=== PATIENT | female | born 1970 | race Caucasian/White ===

== ENCOUNTER 2016-11-30 23:33 | Emergency (ER) | payer SELFPAY ==
[~2016-11-30] VITALS: Ht 167.6 cm; Wt 62.0 kg
[2016-11-30 23:34] VITALS: BP 155/85; PULSE 85; RESP 16; TEMP 98.6; O2SAT 99
[2016-12-01 00:43] VITALS: BP 135/91; PULSE 80; RESP 16; O2SAT 99
[2016-12-01] MEDS ORDERED: KEPP750T PO (00:43)
[2016-12-01] MEDS ORDERED: ONDANSETRON HCL 4 MG/2 ML VIAL IV ONE (01:45)
[2016-12-01] MEDS ORDERED: SODIUM CHLOR 0.9% 1000 ML INJ 1,000 ML IV ONE (01:45)
[2016-12-01 01:46] VITALS: O2SAT 98
--- NOTE | 2016-12-01 01:56 | PD ---
HPI Chief Complaint: Abdominal Pain Time Seen by Provider: 00:42 Travel History International Travel<30 days: No Contact w/Intl Traveler<30days: No Traveled to known affect area: No History of Present Illness HPI The patient is a 46 year old female who presents to the [facility] emergency department with a history of abdominal pain associated with nausea, vomiting, and diarrhea that began yesterday. The patient reports that the pain is sharp in character and has been constant. She reports that the pain is generalized throughout her abdomen. She reports that she's had nausea and vomiting 4 today. She's had diarrhea 6. She reports that the stool is dark brown in color. She reports that she also has a history of seizure disorder and had 3 seizures reportedly earlier today. She reports that she has been taking her Keppra as prescribed. The patient reports that she has tongue pain related to biting her tongue. The patient denies any known recent fevers, cough , congestion, neck pain, chest pain, shortness of breath, urinary symptoms, or other neurologic symptoms. [facility] Past Medical History Narrative Medical The patient's past medical history is significant for a seizure disorder. Seizures: Yes ("I SHAKE" ) Influenza Vaccination: Yes ?: Not LMP: 1 week ago. Past Surgical History Narrative Surgical The patient's past surgical history is significant for 2 ectopic surgeries. Surgical History: No Previous Surgery Social History Alcohol Use: No Tobacco Use: Yes (08/24 ppd) Substance Use: No (pt denies ) Allergies-Medications (Allergen,Severity, Reaction): Coded Allergies: Nonsteroidal Anti-Inflammatory Agts (Verified Allergy, Severe, Anaphylaxis , 12/01/16) Sulfa (Verified Allergy, Intermediate, Rash, 12/01/16) Reported Meds & Prescriptions Reported Meds & Active Scripts Active Reported Keppra (Levetiracetam) 750 Mg Tab 750 Mg PO BID Review of Systems Except as stated in HPI: all other systems reviewed are Neg General / Constitutional: No: Fever Eyes: No: Visual changes HENT: Positive: Other (tongue contusion) Cardiovascular: No: Chest Pain or Discomfort Respiratory: No: Shortness of Breath Gastrointestinal: Positive: Nausea, Vomiting, Diarrhea, Abdominal Pain, Changes in Bowel Habits, No: Hematemesis, Hematochezia, Indigestion, Loss of Appetite Genitourinary: No: Dysuria Musculoskeletal: No: Pain Skin: No Rash Neurologic: Positive: Seizures, No: Weakness, Focal Abnormalities, Change in Mentation, Slurred Speech, Sensory Disturbance Psychiatric: No: Depression Endocrine: No: Polydipsia Hematologic/Lymphatic: No: Easy Bruising Physical Exam Narrative General: The patient is a well-developed well-nourished female in no acute distress. Head and Neck exam: Head is normocephalic atraumatic. Eyes: EOMI, pupils are equal round and reactive to light. Nose: Midline septum with pink mucous membranes Mouth: The patient on examination of her mouth is noted to have a tongue contusion, abrasion along the right side of the tongue, abrasion along the left side of the lower lip inner mucosa. Dentition unremarkable. Moist mucus membranes. Posterior oropharynx is not erythematous. No tonsillar hypertrophy. Uvula midline. Airway patent. Neck: No palpable lymphadenopathy. No nuchal rigidity. No thyromegaly. Cardiovascular: Regular rate and rhythm without murmurs, gallops, or rubs. Lungs: Clear to auscultation bilaterally. No wheezes, rhonchi, or rales. Abdomen: Soft, with reported tenderness on palpation in the midepigastric area, no other focal tenderness on palpation. No guarding, rebound, or rigidity. Normal bowel sounds are audible. No tenderness on palpation of McBurney's point Extremities: No clubbing, cyanosis, or edema. 2+ pulses in all 4 extremities. No calf tenderness on palpation. Back: No spinous process tenderness to palpation. No costovertebral angle tenderness to palpation. Neurologic Exam: Grossly nonfocal. Skin Exam: No rash noted. Intact skin that is warm and dry. Data Data Last Documented VS Vital Signs Date Time Temp Pulse Resp B/P Pulse Ox O2 Delivery O2 Flow Rate FiO2 12/01/16 01:46 98 Room Air 12/01/16 00:43 80 16 135/91 11/30/16 23:34 98.6 Orders Electrocardiogram (12/01/16 01:42) Complete Blood Count With Diff (12/01/16 01:42) Comprehensive Metabolic Panel (12/01/16 01:42) Prothrombin Time / Inr (Pt) (12/01/16 01:42) Act Partial Throm Time (Ptt) (12/01/16 01:42) C-Reactive Protein (Crp) (12/01/16 01:42) Lipase (12/01/16 01:42) Urinalysis - C+S If Indicated (12/01/16 01:42) Beta Hcg (Quant/Titer) (12/01/16 01:42) Magnesium (Mg) (12/01/16 01:42) Chest, Single Ap (12/01/16 01:42) Ct Brain W/O Iv Contrast(Rout) (12/01/16 01:42) Ct Abd/Pel W Iv Contrast(Rout) (12/01/16 01:42) Iv Access Insert/Monitor (12/01/16 01:42) Ecg Monitoring (12/01/16 01:42) Oximetry (12/01/16 01:42) Drug Screen, Random Urine (12/01/16 01:42) Alcohol (Ethanol) (12/01/16 01:42) Sodium Chlor 0.9% 1000 Ml Inj (Ns 1000 M (12/01/16 01:45) Ondansetron Inj (Zofran Inj) (12/01/16 01:45) Acetaminophen (Tylenol) (12/01/16 02:00) Iohexol 350 Inj (Omnipaque 350 Inj) (12/01/16 03:14) Morphine Inj (Morphine Inj) (12/01/16 03:30) Ondansetron Inj (Zofran Inj) (12/01/16 03:30) Labs Laboratory Tests Test 12/01/16 12/01/16 01:51 02:20 White Blood Count 16.4 TH/MM3 Red Blood Count 4.10 MIL/MM3 Hemoglobin 11.8 GM/DL Hematocrit 35.9 % Mean Corpuscular Volume 87.5 FL Mean Corpuscular Hemoglobin 28.7 PG Mean Corpuscular Hemoglobin 32.9 % Concent Red Cell Distribution Width 16.1 % Platelet Count 355 TH/MM3 Mean Platelet Volume 8.5 FL Neutrophils (%) (Auto) 81.8 % Lymphocytes (%) (Auto) 11.7 % Monocytes (%) (Auto) 6.2 % Eosinophils (%) (Auto) 0.0 % Basophils (%) (Auto) 0.3 % Neutrophils # (Auto) 13.4 TH/MM3 Lymphocytes # (Auto) 1.9 TH/MM3 Monocytes # (Auto) 1.0 TH/MM3 Eosinophils # (Auto) 0.0 TH/MM3 Basophils # (Auto) 0.1 TH/MM3 CBC Comment DIFF FINAL Differential Comment Prothrombin Time 10.9 SEC Prothromb Time International 1.0 RATIO Ratio Activated Partial 27.0 SEC Thromboplast Time Sodium Level 141 MEQ/L Potassium Level 3.7 MEQ/L Chloride Level 109 MEQ/L Carbon Dioxide Level 23.1 MEQ/L Anion Gap 9 MEQ/L Blood Urea Nitrogen 5 MG/DL Creatinine 0.73 MG/DL Estimat Glomerular Filtration 85 ML/MIN Rate Random Glucose 92 MG/DL Calcium Level 8.5 MG/DL Magnesium Level 2.0 MG/DL Total Bilirubin 0.3 MG/DL Aspartate Amino Transf 13 U/L (AST/SGOT) Alanine Aminotransferase 14 U/L (ALT/SGPT) Alkaline Phosphatase 69 U/L C-Reactive Protein 0.33 MG/DL Total Protein 7.4 GM/DL Albumin 3.7 GM/DL Lipase 65 U/L Human Chorionic Gonadotropin, LESS THAN 1 Quant MIU/ML Ethyl Alcohol Level LESS THAN 3 MG/DL Urine Color LIGHT-YELLOW Urine Turbidity HAZY Urine pH 6.0 Urine Specific [place] 1.020 Urine Protein TRACE mg/dL Urine Glucose (UA) NEG mg/dL Urine Ketones NEG mg/dL Urine Occult Blood NEG Urine Nitrite NEG Urine Bilirubin NEG Urine Urobilinogen LESS THAN 2.0 MG/DL Urine Leukocyte Esterase NEG Urine RBC 1 /hpf Urine WBC 2 /hpf Urine Squamous Epithelial 7 /hpf Cells Urine Mucus FEW /lpf Microscopic Urinalysis Comment CULT NOT INDICATED Urine Opiates Screen NEG Urine Barbiturates Screen NEG Urine Amphetamines Screen NEG Urine Benzodiazepines Screen POS Urine Cocaine Screen NEG Urine Cannabinoids Screen POS [facility] Medical Decision Making Medical Screen Exam Complete: Yes Emergency Medical Condition: Yes Medical Record Reviewed: Yes Differential Diagnosis Electrolyte abnormality, versus dehydration, versus viral versus bacterial gastroenteritis, versus C. difficile colitis, versus pyelonephritis, versus cystitis, versus diverticulitis Narrative Course During the course of the patients emergency department visit, the patients history, examination, and differential diagnosis were reviewed with the patient. The patient had IV access obtained and blood work sent for analysis. The patient was placed on a registered nurse cardiac with oximetry and blood pressure monitoring. An EKG was done on arrival. The patient's EKG shows a sinus rhythm heart rate of 81, no acute ST segment elevation or depression, T waves are inverted in V1, V2. The patient was provided initially Tylenol for pain, normal saline IV fluids, Zofran 4 mg IV for nausea. The patient had persistent pain and was given morphine, additional Zofran [address] scan of the abdomen and pelvis was ordered. The patients laboratory studies were reviewed and remarkable for a white count of 16.4, hemoglobin 11.8, platelets 355 with 81.8 neutrophil, CMP is remarkable for chloride of 109, BUNs 5, GFR of 85, AST 13, C-reactive protein 0.33, lipase 65, beta hCG is less than 1, PT PTT within normal limits, urinalysis is unremarkable. Urine drug screen is positive for benzodiazepines, cannabinoids, alcohol level is less than 3. Radiology studies were reviewed and remarkable for a chest x-ray that shows a right mid lung nodule that is [address] scan of the chest as recommended by the reading radiologist for follow-up. CT scan of the brain shows no acute abnormality. Left maxillary sinus disease is noted. CT scan of the abdomen and pelvis shows fluid filled large bowel loops without obstruction, bilateral subcentimeter related renal low densities likely benign cyst. The patient will be discharged home from the emergency department in stable condition. The patient has had no further episodes of vomiting or diarrhea. The patient's abdominal examination is benign. Regarding the patient's lung nodule the patient is given a copy of her chest x-ray. The patient was also given an outpatient lab slip for an outpatient scan of the chest. The patient is instructed to follow-up with her primary care physician regarding this this week. The patient will be discharged home with a prescription for antibiotic for maxillary sinus infection and Phenergan for nausea. The patient is resting comfortably and feels better, is alert and in no distress. The patients results and examination findings were discussed with the patient. The repeat examination is unremarkable and benign. The history, exam, diagnostic testing, and current condition do not suggest any significant pathology to warrant further testing, continued ED treatment, admission, or surgical evaluation at this point. The vital signs have been stable. The patient does not have uncontrollable pain, intractable vomiting, or other significant symptoms. The patient's condition is stable and appropriate for discharge. The patient will pursue further outpatient evaluation with a primary care physician or other designated or consulting physician as indicated in the discharge instructions. The patient expressed understanding and was agreeable with this plan. Diagnosis Primary Impression: Nausea, vomiting, and diarrhea Additional Impressions: Left maxillary sinusitis Lung nodule seen on imaging study Referrals: Primary Care Physician 2 days Patient Instructions: Acute Diarrhea (ED), Acute Nausea and Vomiting (ED), General Instructions, Pulmonary Nodules (ED), Sinusitis (ED) Additional Instructions: Follow-up with her primary care physician regarding the lung nodule noted on chest x-ray. The patient was given an outpatient testing slip to obtain a CT scan of the chest to further evaluate the pulmonary nodule noted on chest x-ray that is in the right mid lung field and 12 mm. Med/Other Pt SpecificInfo: Prescription(s) given Scripts Promethazine (Phenergan)25 Mg Tab25 Mg PO Q6H PRN (Nausea/Vomiting) #7 TAB Ref 0 Prov:Caryl Smiley MD 12/01/16 Azithromycin (Zithromax Z-Filippo)250 Mg Ghbm660 Mg PO DIRECTED #1 DSPK Ref 0 500 MG (2 tabs) day 1, then 1 tab days 2-5. Prov:Caryl Smiley MD 12/01/16 Disposition: 01 DISCHARGE HOME Condition: Stable Caryl Smiley MD Dec 01, 2016 01:56
[2016-12-01] MEDS ORDERED: ACETAMINOPHEN 325 MG TAB PO ONE (02:00)
[2016-12-01 02:10] LABS: AUTOMATED NEUTROPHIL # 13.4 TH/MM3 (1.8-7.7); BASOPHIL # 0.1 TH/MM3 (0-0.2); BASOPHIL % 0.3 % (0.0-2.0); HEMATOCRIT 35.9 % (35.0-46.0); HEMO FLAGS DIFF FINAL; LYMPH % 11.7 % (9.0-44.0); LYMPHOCYTE # 1.9 TH/MM3 (1.0-4.8); MEAN CELL VOLUME 87.5 FL (80.0-100.0); MEAN CORPUSCULAR HEMOGLOBIN 28.7 PG (27.0-34.0); MEAN CORPUSCULAR HGB CONC 32.9 % (32.0-36.0); MONO % 6.2 % (0.0-8.0); NEUT % 81.8 % (16.0-70.0); PLATELET COUNT 355 TH/MM3 (150-450); PROTHROMBIN TIME - PATIENT 10.9 SEC (9.8-11.6); RED CELL DISTRIBUTION WIDTH 16.1 % (11.6-17.2); WHITE BLOOD COUNT 16.4 TH/MM3 (4.0-11.0)
[2016-12-01 02:27] LABS: ALT (GPT) 14 U/L (10-53); ANION GAP 9 MEQ/L (5-15); AST (GOT) 13 U/L (15-37); BICARBONATE 23.1 MEQ/L (21.0-32.0); BLOOD UREA NITROGEN 5 MG/DL (7-18); CHLORIDE 109 MEQ/L (98-107); GLOMERULAR FILTRATION RATE 85 ML/MIN (>89); POTASSIUM 3.7 MEQ/L (3.5-5.1); SODIUM (NA) 141 MEQ/L (136-145)
[2016-12-01 02:30] LABS: ALKALINE PHOSPHATASE 69 U/L (45-117); BETA HCG QUANT LESS THAN 1 MIU/ML (0-5); TOTAL BILIRUBIN ADULT 0.3 MG/DL (0.2-1.0)
[2016-12-01 02:33] LABS: BLOOD, URINE NEG (NEG); COMMENT (UR) CULT NOT INDICATED; CULTURE IF INDICATED CULT NOT INDICATED; GLUCOSE,URINE NEG (NEG); KETONE, URINE NEG (NEG); MUCUS URINE FEW /lpf (OCC); NITRITE,URINE NEG (NEG); SQUAMOUS EPITHELIAL CELL URINE 7 /hpf (0-5); URINE COLOR LIGHT-YELLOW (YELLW/STRAW)
[2016-12-01 02:40] LABS: AMPHETAMINE, URINE NEG (NEG); BARBITURATES, URINE NEG (NEG); COCAINE, URINE NEG (NEG)
--- NOTE | 2016-12-01 03:08 | RADRPT ---
EXAM DATE/TIME: 12/01/2016 01:39 [facility] COMPARISON: No previous studies available for comparison. INDICATIONS : Shortness of breath. MEDICAL HISTORY : None. SURGICAL HISTORY : None. ENCOUNTER: Initial ACUITY: 1 day PAIN SCORE: Non-responsive. LOCATION: Bilateral chest FINDINGS: A single view of the chest demonstrates the lungs to be symmetrically aerated without evidence of mas s, infiltrate or effusion. There is a nodule in the right midlung measuring 12 mm. The cardiomediast inal contours are unremarkable. Osseous structures are intact. CONCLUSION: Right midlung nodule. CT chest recommended. Sameer Handley MD on December 01, 2016 at 3:06 Board Certified Radiologist. This report was verified electronically.
[2016-12-01] MEDS ORDERED: IOHEXOL 350 MG/ML 10 ML VIAL (for RAD DIAG) IV ONE (03:14)
[2016-12-01] MEDS ORDERED: ONDANSETRON HCL 4 MG/2 ML VIAL IV PUSH ONE (03:30)
[2016-12-01] MEDS ORDERED: MORPHINE SULFATE 4 MG/ML INJ IV PUSH ONE (03:30)
--- NOTE | 2016-12-01 04:11 | RADRPT ---
EXAM DATE/TIME: 12/01/2016 03:07 [facility] COMPARISON: No previous studies available for comparison. INDICATIONS : Seizure with fall. RADIATION DOSE: 54.61 CTDIvol (mGy) MEDICAL HISTORY : Seizures. SURGICAL HISTORY : None. ENCOUNTER: Initial ACUITY: 1 day PAIN SCALE: 10/10 LOCATION: Bilateral cranial TECHNIQUE: Multiple contiguous axial images were obtained of the head. Using automated exposure control and adj ustment of the mA and/or kV according to patient size, radiation dose was kept as low as reasonably a chievable to obtain optimal diagnostic quality images. FINDINGS: CEREBRUM: The ventricles are normal for age. No evidence of midline shift, mass lesion, hemorrhage or acute in farction. No extra-axial fluid collections are seen. POSTERIOR FOSSA: The cerebellum and brainstem are intact. The 4th ventricle is midline. The cerebellopontine angle i s unremarkable. EXTRACRANIAL: The visualized portion of the orbits is intact. Partial opacification left maxillary sinus. SKULL: The calvaria is intact. No evidence of skull fracture. CONCLUSION: No acute intracranial disease. Left maxillary sinus disease Sameer Handley MD on December 01, 2016 at 4:09 Board Certified Radiologist. This report was verified electronically.
--- NOTE | 2016-12-01 04:21 | RADRPT ---
EXAM DATE/TIME: 12/01/2016 03:11 [facility] COMPARISON: No previous studies available for comparison. INDICATIONS : Abdomen pain with diarrhea. IV CONTRAST: 72 cc Omnipaque 350 (iohexol) IV ORAL CONTRAST: No oral contrast ingested. RADIATION DOSE: 4.61 CTDIvol (mGy) MEDICAL HISTORY : Seizures. SURGICAL HISTORY : None. ENCOUNTER: Initial ACUITY: 1 day PAIN SCALE: 10/10 LOCATION: abdomen TECHNIQUE: Volumetric scanning of the abdomen and pelvis was performed. Using automated exposure control and ad justment of the mA and/or kV according to patient size, radiation dose was kept as low as reasonably achievable to obtain optimal diagnostic quality images. FINDINGS: LOWER LUNGS: The visualized lower lungs are clear. LIVER: Homogeneous density without lesion. There is no dilation of the biliary tree. No calcified gallston es. SPLEEN: Normal size without lesion. PANCREAS: Within normal limits. KIDNEYS: Normal in size and shape. There is no mass, stone or hydronephrosis. Subcentimeter bilateral renal l ow-density is. ADRENAL GLANDS: Within normal limits. VASCULAR: Mild atherosclerotic changes. There is no aortic aneurysm. BOWEL/MESENTERY: Fluid-filled large bowel loops are seen. No obstruction.. There is no free intraperitoneal air or fl uid. ABDOMINAL WALL: Within normal limits. RETROPERITONEUM: There is no lymphadenopathy. BLADDER: No wall thickening or mass. REPRODUCTIVE: Within normal limits. INGUINAL: There is no lymphadenopathy or hernia. MUSCULOSKELETAL: Within normal limits for patient age. CONCLUSION: 1. Fluid-filled large bowel loops without obstruction. 2. Bilateral subcentimeter related renal low densities likely benign cysts. Sameer Handley MD on December 01, 2016 at 4:10 Board Certified Radiologist. This report was verified electronically.
[2016-12-01] MEDS ORDERED: PROM25TA5 PO (05:01)
[2016-12-01] MEDS ORDERED: ZITHTAB PO (05:01)
--- NOTE | 2016-12-01 11:35 | EKG ---
Date Performed: 12/01/2016 Time Performed: 01:55:58 PTAGE: 46 years EKG: Sinus rhythm NORMAL ECG NO PREVIOUS TRACING DOCTOR: Jason Grayson Interpretating Date/Time 12/01/2016 11:33:00
== END 2016-12-01 06:10 | disposition home or self-care (01) ==
LOC: NEPC 23:33
DX: R11.2 Nausea with vomiting, unspecified (principal); R19.7 Diarrhea, unspecified; R91.1 Solitary pulmonary nodule; F17.210 Nicotine dependence, cigarettes, uncomplicated; J01.00 Acute maxillary sinusitis, unspecified
CPT/HCPCS: 70450; 71010; 74177; 80053; 81001; 83690; 83735; 84702; 85025; 85610; 85730; 86140; 93005; 96361; 96374; 96375; 96376; 99284; J2270; J2405; J7030; Q9967; 80307

== ENCOUNTER 2016-12-01 15:59 | Emergency (ER) | payer SELFPAY ==
[~2016-12-01] VITALS: Ht 167.6 cm; Wt 63.5 kg
[~2016-12-01 15:59] MED LIST: KEPP750T PO; PROM25TA5 PO; ZITHTAB PO
[2016-12-01 16:02] VITALS: BP 150/87; PULSE 78; RESP 24; TEMP 98.6; O2SAT 100
--- NOTE | 2016-12-01 16:05 | PD ---
Physical Exam Time Seen by Provider: 16:02 Narrative 46 year old female with seizure this morning, withnessed by reports h/ a. +incontinence, tongue biting. takes keppra, compliant with medications. Reports 3 seizures yesterday. Seen her yesterday for eval of n/v/d/abd pain. VSS Seen at triage desk, awaiting bed placement. Data Data Last Documented VS Vital Signs Date Time Temp Pulse Resp B/P Pulse Ox O2 Delivery O2 Flow Rate FiO2 12/01/16 16:02 98.6 78 24 150/87 100 Room Air [facility] Medical Record Reviewed: Yes Supervised Visit with MERCEDES: Yes Nitesh Dumont Dec 01, 2016 16:05
--- NOTE | 2016-12-01 17:09 | PD ---
HPI Chief Complaint: Seizure Time Seen by Provider: 16:57 Travel History International Travel<30 days: No Contact w/Intl Traveler<30days: No Traveled to known affect area: No History of Present Illness HPI 46-year-old female with history of seizure disorder on [place], from [place], in town because her is building a building here, here for evaluation of headache and seizure. Patient was here yesterday for abdominal pain, nausea, vomiting. She also reportedly had 3 seizures yesterday and was complaining of a headache yesterday. Labs reviewed from yesterday were unremarkable. She is not . CT abdomen pelvis showed some fluid-filled loops of bowel with no signs of obstruction. Chest x-ray showed a lung nodule which the patient was made aware of any made her again aware of this today with recommendation for CT chest as an outpatient. Head CT showed left maxillary sinus disease. The patient was discharged home with antiemetics and azithromycin which she has not filled. She again reportedly had a seizure this morning. She is complaining of tongue pain where she bit her tongue, oral right cheek pain which she bit her cheek, and a frontal headache. Headache is constant, severe. She reports having a fever of 101F yesterday, no fevers today. No neck pain or stiffness. She denies alcohol abuse. No drug use. PFSH Past Medical History Seizures: Yes ?: Not LMP: 11/2016 Social History Alcohol Use: No Tobacco Use: Yes Substance Use: No Allergies-Medications (Allergen,Severity, Reaction): Coded Allergies: Nonsteroidal Anti-Inflammatory Agts (Verified Allergy, Severe, Anaphylaxis , 12/01/16) Sulfa (Verified Allergy, Intermediate, Rash, 12/01/16) Reported Meds & Prescriptions Reported Meds & Active Scripts Active Phenergan (Promethazine HCl) 25 Mg Tab 25 Mg PO Q6H PRN Zithromax Z-Filippo (Azithromycin) 250 Mg Dspk 250 Mg PO DIRECTED 500 MG (2 tabs) day 1, then 1 tab days 2-5. Reported Keppra (Levetiracetam) 750 Mg Tab 750 Mg PO BID Review of Systems Except as stated in HPI: all other systems reviewed are Neg Physical Exam Narrative GENERAL: Well-developed, well-nourished, awake, alert, no acute distress. SKIN: Focused skin assessment warm/dry. HEAD: Atraumatic. Normocephalic. EYES: Pupils equal, round, 3 mm, reactive to light. No scleral icterus. No injection or drainage. ENT: No nasal bleeding or discharge. Mucous membranes pink and moist. Poor dentition. Abrasion to right lateral tongue and right buccal mucosa. NECK: Trachea midline. No JVD. No midline cervical spine step-off or tenderness. No nuchal rigidity. CARDIOVASCULAR: Regular rate and rhythm. RESPIRATORY: No accessory muscle use. Clear to auscultation. Breath sounds equal bilaterally. GASTROINTESTINAL: Abdomen soft, non-tender, nondistended. MUSCULOSKELETAL: No obvious deformities. No clubbing. No cyanosis. No edema. NEUROLOGICAL: Awake and alert. No obvious cranial nerve deficits. Motor grossly within normal limits. Normal speech. PSYCHIATRIC: Appropriate mood and affect; insight and judgment normal. Data Data Last Documented VS Vital Signs Date Time Temp Pulse Resp B/P Pulse Ox O2 Delivery O2 Flow Rate FiO2 12/01/16 18:26 57 16 115/68 100 Room Air 12/01/16 16:02 98.6 Orders Complete Blood Count With Diff (12/01/16 17:04) Alcohol (Ethanol) (12/01/16 17:04) Ecg Monitoring (12/01/16 17:04) Iv Access Insert/Monitor (12/01/16 17:04) Oximetry (12/01/16 17:04) Comprehensive Metabolic Panel (12/01/16 17:04) Sodium Chloride 0.9% Flush (Ns Flush) (12/01/16 17:15) Ua Includes Microscopic (12/01/16 17:04) Magnesium (Mg) (12/01/16 17:04) Morphine Inj (Morphine Inj) (12/01/16 17:15) Metoclopramide Inj (Reglan Inj) (12/01/16 17:15) Sodium Chlor 0.9% 1000 Ml Inj (Ns 1000 M (12/01/16 17:15) Morphine Inj (Morphine Inj) (12/01/16 18:45) Labs Laboratory Tests Test 12/01/16 17:24 White Blood Count 12.1 TH/MM3 Red Blood Count 3.86 MIL/MM3 Hemoglobin 11.0 GM/DL Hematocrit 33.9 % Mean Corpuscular Volume 87.9 FL Mean Corpuscular Hemoglobin 28.5 PG Mean Corpuscular Hemoglobin 32.4 % Concent Red Cell Distribution Width 16.7 % Platelet Count 321 TH/MM3 Mean Platelet Volume 8.4 FL Neutrophils (%) (Auto) 71.3 % Lymphocytes (%) (Auto) 20.0 % Monocytes (%) (Auto) 7.9 % Eosinophils (%) (Auto) 0.3 % Basophils (%) (Auto) 0.5 % Neutrophils # (Auto) 8.6 TH/MM3 Lymphocytes # (Auto) 2.4 TH/MM3 Monocytes # (Auto) 1.0 TH/MM3 Eosinophils # (Auto) 0.0 TH/MM3 Basophils # (Auto) 0.1 TH/MM3 CBC Comment DIFF FINAL Differential Comment Urine Color LIGHT-YELLOW Urine Turbidity HAZY Urine pH 6.0 Urine Specific [place] 1.018 Urine Protein NEG mg/dL Urine Glucose (UA) NEG mg/dL Urine Ketones NEG mg/dL Urine Occult Blood MOD Urine Nitrite NEG Urine Bilirubin NEG Urine Urobilinogen LESS THAN 2.0 MG/DL Urine Leukocyte Esterase NEG Urine RBC LESS THAN 1 /hpf Urine WBC 1 /hpf Urine Squamous Epithelial 6 /hpf Cells Sodium Level 139 MEQ/L Potassium Level 4.2 MEQ/L Chloride Level 108 MEQ/L Carbon Dioxide Level 22.9 MEQ/L Anion Gap 8 MEQ/L Blood Urea Nitrogen 4 MG/DL Creatinine 0.76 MG/DL Estimat Glomerular Filtration 82 ML/MIN Rate Random Glucose 90 MG/DL Calcium Level 8.0 MG/DL Magnesium Level 1.9 MG/DL Total Bilirubin 0.3 MG/DL Aspartate Amino Transf 36 U/L (AST/SGOT) Alanine Aminotransferase 16 U/L (ALT/SGPT) Alkaline Phosphatase 58 U/L Total Protein 6.5 GM/DL Albumin 3.1 GM/DL Ethyl Alcohol Level LESS THAN 3 MG/DL [facility] Medical Decision Making Medical Screen Exam Complete: Yes Emergency Medical Condition: Yes Differential Diagnosis Breakthrough seizure, medication noncompliance, metabolic abnormality, meningitis/encephalitis unlikely, Narrative Course Initial vital signs show heart rate 70, blood pressure 150/87, pulse ox 100% on room air, oral temp of 98.6F. CBC shows WBC 12.1, hemoglobin 11, hematocrit 33.9, platelets 321, neutrophils 71.3%. CMP is unremarkable. Alcohol level is negative. UA is not suggestive of UTI. The patient was given pain medication and Reglan and reports improvement in headache. She has no nuchal rigidity on exam. She is overall well-appearing. Headache started yesterday. She did have a CT of her head yesterday which showed no acute intracranial abnormality, left maxillary sinusitis. I told the patient that the next step to investigate her headache would be an LP to rule out meningitis/SAH. And a clear do not believe she has either the symptoms. She does not wish to undergo LP. Again she is overall well-appearing and is feeling much better. She is stable for discharge home with outpatient follow- up with her primary care physician this week. She was informed on when to return to the emergency department. She verbalizes understanding and agreement with plan. Diagnosis Primary Impression: Seizure Additional Impression: Headache Qualified Code: R51 - Nonintractable headache, unspecified chronicity pattern , unspecified headache type Referrals: Primary Care Physician 3 days Additional Instructions: Follow-up with your primary care physician this week. Return to the emergency department for worsening symptoms or any other concerns. Disposition: 01 DISCHARGE HOME Condition: Stable Isaiah Schreiber MD Dec 01, 2016 17:09
[2016-12-01] MEDS ORDERED: METOCLOPRAMIDE HCL 10 MG/2 ML VIAL IV PUSH ONE (17:15)
[2016-12-01] MEDS ORDERED: SODIUM CHLORIDE 0.9% FLUSH 10 ML FLUSH IVF PRN (17:15)
[2016-12-01] MEDS ORDERED: MORPHINE SULFATE 4 MG/ML INJ IV PUSH ONE ×2 (17:15→18:45)
[2016-12-01] MEDS ORDERED: SODIUM CHLOR 0.9% 1000 ML INJ 1,000 ML IV ONE (17:15)
[2016-12-01 17:27] VITALS: O2SAT 99
[2016-12-01 17:52] LABS: AUTOMATED NEUTROPHIL # 8.6 TH/MM3 (1.8-7.7); BASOPHIL # 0.1 TH/MM3 (0-0.2); BASOPHIL % 0.5 % (0.0-2.0); EOSINOPHIL % 0.3 % (0.0-4.0); HEMATOCRIT 33.9 % (35.0-46.0); HEMO FLAGS DIFF FINAL; LYMPHOCYTE # 2.4 TH/MM3 (1.0-4.8); MEAN CELL VOLUME 87.9 FL (80.0-100.0); MEAN CORPUSCULAR HEMOGLOBIN 28.5 PG (27.0-34.0); MEAN CORPUSCULAR HGB CONC 32.4 % (32.0-36.0); MONO % 7.9 % (0.0-8.0); NEUT % 71.3 % (16.0-70.0); PLATELET COUNT 321 TH/MM3 (150-450); RED BLOOD COUNT 3.86 MIL/MM3 (4.00-5.30); RED CELL DISTRIBUTION WIDTH 16.7 % (11.6-17.2); WHITE BLOOD COUNT 12.1 TH/MM3 (4.0-11.0)
[2016-12-01 17:54] LABS: BLOOD, URINE MOD (NEG); GLUCOSE,URINE NEG (NEG); KETONE, URINE NEG (NEG); NITRITE,URINE NEG (NEG); SQUAMOUS EPITHELIAL CELL URINE 6 /hpf (0-5); URINE COLOR LIGHT-YELLOW (YELLW/STRAW)
[2016-12-01 18:23] LABS: ALKALINE PHOSPHATASE 58 U/L (45-117); ALT (GPT) 16 U/L (10-53); ANION GAP 8 MEQ/L (5-15); AST (GOT) 36 U/L (15-37); BICARBONATE 22.9 MEQ/L (21.0-32.0); BLOOD UREA NITROGEN 4 MG/DL (7-18); CHLORIDE 108 MEQ/L (98-107); GLOMERULAR FILTRATION RATE 82 ML/MIN (>89); MAGNESIUM 1.9 MG/DL (1.5-2.5); POTASSIUM 4.2 MEQ/L (3.5-5.1); SODIUM (NA) 139 MEQ/L (136-145); TOTAL BILIRUBIN ADULT 0.3 MG/DL (0.2-1.0)
[2016-12-01 18:26] VITALS: BP 115/68; PULSE 57; RESP 16; O2SAT 100
== END 2016-12-01 19:34 | disposition home or self-care (01) ==
LOC: NEPD 15:59
DX: R56.9 Unspecified convulsions (principal); R51 Headache; J32.0 Chronic maxillary sinusitis; K14.6 Glossodynia; Z72.0 Tobacco use
CPT/HCPCS: 80053; 80307; 81001; 83735; 85025; 96374; 96375; 96376; 99284; J2270; J2765; J7030

== ENCOUNTER 2016-12-08 16:47 | Emergency (ER) | payer OTHER ==
[~2016-12-08] VITALS: Ht 167.6 cm; Wt 63.0 kg
[2016-12-08 16:48] VITALS: BP 140/95; PULSE 100; RESP 20; TEMP 98.6; O2SAT 100
[2016-12-08] MEDS ORDERED: PROCHLORPERAZINE MALEATE 10 MG TAB PO ONE (17:45)
[2016-12-08] MEDS ORDERED: diphenhydrAMINE HCL 50 MG CAP PO ONE (17:45)
--- NOTE | 2016-12-08 18:18 | PD ---
HPI Chief Complaint: Seizure Time Seen by Provider: 17:28 Travel History International Travel<30 days: No Contact w/Intl Traveler<30days: No Traveled to known affect area: No History of Present Illness HPI Patient is a 46-year-old female presents emergency department with headache bimaxillary states fairly intense ever since she had a seizure a few days ago. Patient states she was here had a CAT scan of her head and told that she had sinusitis is been taking her antibiotics as prescribed. She states she's also been taking her Keppra as prescribed. She's not yet followed up with her seizure center. Denies any further seizures. [facility] Past Medical History Seizures: Yes ?: Unknown Social History Alcohol Use: No Tobacco Use: Yes Substance Use: No Allergies-Medications (Allergen,Severity, Reaction): Coded Allergies: Nonsteroidal Anti-Inflammatory Agts (Verified Allergy, Severe, Anaphylaxis , 12/08/16) Sulfa (Verified Allergy, Intermediate, Rash, 12/08/16) Reported Meds & Prescriptions Reported Meds & Active Scripts Active Phenergan (Promethazine HCl) 25 Mg Tab 25 Mg PO Q6H PRN Reported Keppra (Levetiracetam) 750 Mg Tab 750 Mg PO BID Review of Systems Except as stated in HPI: all other systems reviewed are Neg Physical Exam Narrative GENERAL: Well-developed well-nourished, appears older than stated age in no apparent distress. SKIN: Focused skin assessment warm/dry. HEAD: Atraumatic. Normocephalic. No raccoons eyes no corcoran signs. Bilateral maxillary or minimally tender to percussion. EYES: Pupils equal and round. No scleral icterus. No injection or drainage. ENT: No nasal bleeding or discharge. Mucous membranes pink and moist. TMs clear bilaterally, oropharynx pink and clear. Patient missing multiple left maxillary teeth. NECK: Trachea midline. No JVD. CARDIOVASCULAR: Regular rate and rhythm. No murmur appreciated. RESPIRATORY: No accessory muscle use. Clear to auscultation. Breath sounds equal bilaterally. GASTROINTESTINAL: Abdomen soft, non-tender, nondistended. Hepatic and splenic margins not palpable. MUSCULOSKELETAL: No obvious deformities. No clubbing. No cyanosis. No edema. NEUROLOGICAL: Awake and alert. Cranial nerves II through XII are grossly intact and nonfocal, 5 out of 5 strength in all 4 extremity's, cerebellar testing normal, PSYCHIATRIC: Appropriate mood and affect; insight and judgment normal. Data Data Last Documented VS Vital Signs Date Time Temp Pulse Resp B/P Pulse Ox O2 Delivery O2 Flow Rate FiO2 12/08/16 16:48 98.6 100 20 140/95 100 Room Air Orders Diphenhydramine (Benadryl) (12/08/16 17:45) Prochlorperazine Maleate (Compazine) (12/08/16 17:45) MDM Medical Decision Making Medical Screen Exam Complete: Yes Emergency Medical Condition: Yes Differential Diagnosis Recurrent headache, sinusitis, seizure disorder. Narrative Course 46-year-old female roomed in the emergency department for complaints of headache. She was evaluated earlier this week with a CT head which did show 6 she has sinusitis. She appears in no apparent distress is calm and collective and is not tachycardic. She was given Benadryl and Compazine and she states she has a ride home. On reassess she still says is having headache but is sleeping fairly soundly. Review of her EForsce shows that the patient has had 5 different prescribers for narcotics in this [facility] this year. In the past 6 months she has had 10 different providers prescribe her narcotics. Regardless of her E for status narcotics are contraindicated for headache as there is data to suggest that they cause rebound headache not to mention that there is a risk of lowering her seizure threshold causing seizures. I discussed this with her and she is disappointed but is willing to follow-up with her neurologist this point. She is stable for discharge. There is no indication further emergent workup at this juncture. Diagnosis Primary Impression: Headache Qualified Code: R51 - Nonintractable headache, unspecified chronicity pattern , unspecified headache type Additional Instructions: Narcotics such as hydrocodone, oxycodone and Ultram all are known to trigger seizures. You need to follow up with your seizure Dr. as well as her neurologist for further workup of your chronic headaches. Disposition: 01 DISCHARGE HOME Condition: Stable Justus Lopez MD Dec 08, 2016 18:17
== END 2016-12-08 20:12 | disposition home or self-care (01) ==
LOC: NEPD 16:47
DX: R51 Headache (principal); R56.9 Unspecified convulsions
CPT/HCPCS: 99283; Q0163; Q0164

== ENCOUNTER 2016-12-23 14:13 | Emergency (ER) | payer SELFPAY ==
[~2016-12-23] VITALS: Ht 167.6 cm; Wt 64.0 kg
[~2016-12-23 14:13] MED LIST changes: -ZITHTAB PO
[2016-12-23 14:15] VITALS: BP 210/107; PULSE 91; RESP 18; TEMP 97.7; O2SAT 100
[2016-12-23 14:16] VITALS: BP 197/93
--- NOTE | 2016-12-23 14:21 | PD ---
Physical Exam Time Seen by Provider: 14:20 Narrative 46 y/o female presents for evaluation of seizure two days ago, headache since then. Today she developed chest pain. Vital signs reviewed. Seen at triage desk. Awaiting bed placement. Data Data Last Documented VS Vital Signs Date Time Temp Pulse Resp B/P Pulse Ox O2 Delivery O2 Flow Rate FiO2 12/23/16 14:16 197/93 12/23/16 14:15 97.7 91 18 100 MDM Medical Record Reviewed: Yes Supervised Visit with [facility]: No Nitesh Dumont December 23, 2016 14:21
[2016-12-23] MEDS ORDERED: SODIUM CHLOR 0.9% 1000 ML INJ 1,000 ML IV ONE (14:46)
[2016-12-23 15:00] VITALS: BP 158/78; PULSE 67; O2SAT 99
[2016-12-23] MEDS ORDERED: SODIUM CHLORIDE 0.9% FLUSH 10 ML FLUSH IVF PRN (15:00)
[2016-12-23] MEDS ORDERED: METOCLOPRAMIDE HCL 10 MG/2 ML VIAL IVP ONE (15:00)
--- NOTE | 2016-12-23 15:08 | PD ---
HPI Chief Complaint: Chest Pain Time Seen by Provider: 15:02 Travel History International Travel<30 days: No Contact w/Intl Traveler<30days: No Traveled to known affect area: No History of Present Illness HPI Patient comes in with multiple complaints. Patient complaining of headache ongoing since Wednesday status post reported witnessed seizure. Patient states headache is consistent with her normal post seizure headaches. Patient states she's been taking Tylenol for this with no improvement in her symptoms. Patient states she cannot take any type of anti-inflammatories or aspirin as she is allergic. Patient also complaining of nausea, vomiting, diarrhea ongoing for a couple of months now. Reports stool is dark which is unchanged. Denies any blood in the vomit. Patient reports she was on Zithromax recently. Patient also complaining of left-sided chest pain is sharp stabbing like in nature that began roughly an hour prior to arrival. Patient denies anything making it better or worse. Patient denies any shortness of breath, diaphoresis , or numbness or tingling anywhere. Denies any cardiac history. Patient reports she has a history of seizure and is taking her medication as prescribed but has not been able to follow-up with a neurologist since relocating to the area recently. PFSH Past Medical History Diminished Hearing: No Seizures: Yes Tetanus Vaccination: > 5 Years Influenza Vaccination: Yes ?: Not : 4 Para: 2 Miscarriage: 2 : 0 Past Surgical History Hysterectomy: Yes Social History Alcohol Use: No Tobacco Use: Yes (1ppd) Substance Use: No Allergies-Medications (Allergen,Severity, Reaction): Coded Allergies: Nonsteroidal Anti-Inflammatory Agts (Verified Allergy, Severe, Anaphylaxis , 12/23/16) Sulfa (Verified Allergy, Intermediate, Rash, 12/23/16) Reported Meds & Prescriptions Reported Meds & Active Scripts Active Phenergan (Promethazine HCl) 25 Mg Tab 25 Mg PO Q6H PRN Reported Keppra (Levetiracetam) 750 Mg Tab 750 Mg PO TID Review of Systems Except as stated in HPI: all other systems reviewed are Neg Physical Exam Narrative GENERAL: Well-developed, well nourished, in no acute distress, and non-ill appearing. SKIN: Focused skin assessment warm and dry. HEAD: Atraumatic. Normocephalic. EYES: Pupils equal and round. EOMI. No scleral icterus. No injection or drainage. ENT: No nasal bleeding or discharge. Mucous membranes pink and moist. NECK: Trachea midline. No JVD. Supple. No nuclear rigidity. CARDIOVASCULAR: Regular rate and rhythm. No murmur appreciated. RESPIRATORY: No accessory muscle use. No respiratory distress. Clear to auscultation. Breath sounds equal bilaterally. GASTROINTESTINAL: Abdomen soft, non-tender, nondistended. Hepatic and splenic margins not palpable. Normal bowel sounds 4. No pulsatile mass. MUSCULOSKELETAL: No obvious deformities. No clubbing. No cyanosis. No edema. Full range of motion. NEUROLOGICAL: Awake and alert. No obvious cranial nerve deficits. Motor grossly within normal limits. Normal speech. PSYCHIATRIC: Appropriate mood and affect; insight and judgment normal. Data Data Last Documented VS Vital Signs Date Time Temp Pulse Resp B/P Pulse Ox O2 Delivery O2 Flow Rate FiO2 12/23/16 15:00 67 158/78 99 Room Air 12/23/16 14:15 97.7 18 Orders Electrocardiogram (12/23/16 ) Electrocardiogram (12/23/16 14:46) Ckmb (Isoenzyme) Profile (12/23/16 14:46) Complete Blood Count With Diff (12/23/16 14:46) Comprehensive Metabolic Panel (12/23/16 14:46) Magnesium (Mg) (12/23/16 14:46) Prothrombin Time / Inr (Pt) (12/23/16 14:46) Act Partial Throm Time (Ptt) (12/23/16 14:46) Troponin I (12/23/16 14:46) Lipase (12/23/16 14:46) Chest, Single Ap (12/23/16 14:46) Ecg Monitoring (12/23/16 14:46) Bilateral Bp Monitoring (12/23/16 14:46) Iv Access Insert/Monitor (12/23/16 14:46) Oximetry (12/23/16 14:46) Oxygen Administration (12/23/16 14:46) Sodium Chloride 0.9% Flush (Ns Flush) (12/23/16 15:00) Metoclopramide Inj (Reglan Inj) (12/23/16 15:00) Sodium Chlor 0.9% 1000 Ml Inj (Ns 1000 M (12/23/16 14:46) Urinalysis - C+S If Indicated (12/23/16 14:54) Labs Laboratory Tests Test 12/23/16 12/23/16 14:57 15:00 White Blood Count 9.7 TH/MM3 Red Blood Count 4.15 MIL/MM3 Hemoglobin 12.4 GM/DL Hematocrit 36.8 % Mean Corpuscular Volume 88.8 FL Mean Corpuscular Hemoglobin 29.9 PG Mean Corpuscular Hemoglobin 33.7 % Concent Red Cell Distribution Width 17.4 % Platelet Count 319 TH/MM3 Mean Platelet Volume 8.6 FL Neutrophils (%) (Auto) 71.6 % Lymphocytes (%) (Auto) 18.7 % Monocytes (%) (Auto) 8.2 % Eosinophils (%) (Auto) 0.8 % Basophils (%) (Auto) 0.7 % Neutrophils # (Auto) 6.9 TH/MM3 Lymphocytes # (Auto) 1.8 TH/MM3 Monocytes # (Auto) 0.8 TH/MM3 Eosinophils # (Auto) 0.1 TH/MM3 Basophils # (Auto) 0.1 TH/MM3 CBC Comment DIFF FINAL Differential Comment Prothrombin Time 11.0 SEC Prothromb Time International 1.0 RATIO Ratio Activated Partial 28.2 SEC Thromboplast Time Sodium Level 139 MEQ/L Potassium Level 4.2 MEQ/L Chloride Level 108 MEQ/L Carbon Dioxide Level 22.9 MEQ/L Anion Gap 8 MEQ/L Blood Urea Nitrogen 4 MG/DL Creatinine 0.80 MG/DL Estimat Glomerular Filtration 77 ML/MIN Rate Random Glucose 83 MG/DL Calcium Level 9.2 MG/DL Magnesium Level 1.8 MG/DL Total Bilirubin 0.2 MG/DL Aspartate Amino Transf 16 U/L (AST/SGOT) Alanine Aminotransferase 13 U/L (ALT/SGPT) Alkaline Phosphatase 71 U/L Total Creatine Kinase 65 U/L Troponin I LESS THAN 0.02 NG/ML Total Protein 7.3 GM/DL Albumin 3.7 GM/DL Lipase 99 U/L Urine Color LIGHT-YELLOW Urine Turbidity CLEAR Urine pH 6.0 Urine Specific [place] 1.005 Urine Protein NEG mg/dL Urine Glucose (UA) NEG mg/dL Urine Ketones NEG mg/dL Urine Occult Blood NEG Urine Nitrite NEG Urine Bilirubin NEG Urine Urobilinogen LESS THAN 2.0 MG/DL Urine Leukocyte Esterase NEG Urine RBC LESS THAN 1 /hpf Urine WBC 1 /hpf Urine Squamous Epithelial 2 /hpf Cells Urine Bacteria RARE /hpf Microscopic Urinalysis Comment CULT NOT INDICATED MDM Medical Decision Making Medical Screen Exam Complete: Yes Emergency Medical Condition: Yes Interpretation(s) EKG reviewed by Dr. Smith shows sinus rhythm with ventricular is 70. No STEMI. No acute changes when compared to previous EKG. Differential Diagnosis headache, atypical chest pain, dehydration, anemia, pneumonia, other Narrative Course Presents medical records reviewed. Patient had a CT her head done less than a month ago. Patient reports this is her typical headache after having a seizure. Patient has previously been evaluated for her headaches as well as her nausea, vomiting, and diarrhea here in the emergency department less than a month ago. Symptoms are unchanged. We'll evaluate patient's chest pain and give IV fluid and Reglan for her headache. Discussed patient with Dr. Smith, who reviewed patient's medical record recommends having patient placed and chest pain center if initial workup is negative and is in agreement with plan of care and treatment for patient's headache. 1615 patient is reassessed. Patient still complaining of headaches, but chest pain is improved somewhat. Patient was offered additional nonnarcotic medication for her headache, patient states they off her medications do not work and only thing that helps her headaches are narcotics she receives when she is the emergency department. Informed patient that narcotics are not indicated for headache and can cause rebound headaches. Patient was informed that we wanted to admit her to the chest pain center for further evaluation of her chest pain. Patient is refusing states that if we are not going to give her narcotics for her headaches as they're the only thing that works and she is going to go to a different hospital. AMA: The risks of leaving against medical advice without further evaluation treatment were discussed with the patient. These risks include cardiac dysfunction, cardiac dysrhythmia, possible heart attack, possible stroke or . The patient indicated understanding of these risks and appeared to have the capacity to make this decision. Diagnosis Primary Impression: Left against medical advice Disposition: 07 AGAINST MEDICAL ADVICE Condition: Stable Reji Linn December 23, 2016 15:08
--- NOTE | 2016-12-23 15:35 | RADRPT ---
EXAM DATE/TIME: 12/23/2016 15:10 [facility] COMPARISON: CHEST SINGLE AP, December 01, 2016, 1:39. INDICATIONS : Chest pain. MEDICAL HISTORY : Seizures. SURGICAL HISTORY : None. ENCOUNTER: Initial ACUITY: 1 day PAIN SCORE: 8/10 LOCATION: Bilateral chest FINDINGS: A single view of the chest demonstrates the lungs to be symmetrically aerated without evidence of mas s, infiltrate or effusion. The cardiomediastinal contours are unremarkable. Osseous structures are intact. The previously seen nodular density on exam of 12/01/16 is not evident on today's study. CONCLUSION: 1. No acute cardiopulmonary findings. Amilcar Sloan MD on December 23, 2016 at 15:32 Board Certified Radiologist. This report was verified electronically.
[2016-12-23 15:36] LABS: AUTOMATED NEUTROPHIL # 6.9 TH/MM3 (1.8-7.7); BASOPHIL # 0.1 TH/MM3 (0-0.2); BASOPHIL % 0.7 % (0.0-2.0); EOSINOPHIL # 0.1 TH/MM3 (0-0.4); EOSINOPHIL % 0.8 % (0.0-4.0); HEMATOCRIT 36.8 % (35.0-46.0); HEMO FLAGS DIFF FINAL; LYMPH % 18.7 % (9.0-44.0); LYMPHOCYTE # 1.8 TH/MM3 (1.0-4.8); MEAN CELL VOLUME 88.8 FL (80.0-100.0); MEAN CORPUSCULAR HEMOGLOBIN 29.9 PG (27.0-34.0); MEAN CORPUSCULAR HGB CONC 33.7 % (32.0-36.0); MONO % 8.2 % (0.0-8.0); NEUT % 71.6 % (16.0-70.0); PLATELET COUNT 319 TH/MM3 (150-450); RED BLOOD COUNT 4.15 MIL/MM3 (4.00-5.30); RED CELL DISTRIBUTION WIDTH 17.4 % (11.6-17.2); WHITE BLOOD COUNT 9.7 TH/MM3 (4.0-11.0)
[2016-12-23 15:49] LABS: APTT (PATIENT) 28.2 SEC (24.3-30.1)
[2016-12-23 15:52] LABS: BACTERIA, URINE RARE /hpf; BLOOD, URINE NEG (NEG); COMMENT (UR) CULT NOT INDICATED; CULTURE IF INDICATED CULT NOT INDICATED; GLUCOSE,URINE NEG (NEG); KETONE, URINE NEG (NEG); NITRITE,URINE NEG (NEG); SQUAMOUS EPITHELIAL CELL URINE 2 /hpf (0-5); URINE COLOR LIGHT-YELLOW (YELLW/STRAW)
[2016-12-23 16:05] LABS: ALKALINE PHOSPHATASE 71 U/L (45-117); ALT (GPT) 13 U/L (10-53); ANION GAP 8 MEQ/L (5-15); AST (GOT) 16 U/L (15-37); BICARBONATE 22.9 MEQ/L (21.0-32.0); BLOOD UREA NITROGEN 4 MG/DL (7-18); CHLORIDE 108 MEQ/L (98-107); GLOMERULAR FILTRATION RATE 77 ML/MIN (>89); MAGNESIUM 1.8 MG/DL (1.5-2.5); POTASSIUM 4.2 MEQ/L (3.5-5.1); SODIUM (NA) 139 MEQ/L (136-145); TOTAL BILIRUBIN ADULT 0.2 MG/DL (0.2-1.0)
[2016-12-23 16:14] LABS: CREATINE KINASE 65 U/L (26-192)
[2016-12-23 16:45] VITALS: BP 125/85
--- NOTE | 2016-12-24 16:45 | EKG ---
Date Performed: 12/23/2016 Time Performed: 14:27:12 PTAGE: 46 years EKG: Sinus rhythm WITH SHORT TN INTERVAL MODERATE T-WAVE ABNORMALITY, CONSIDER ANTEROLATERAL ISCHEMIA ABNORMAL ECG Com pared to PREVIOUS TRACING of 12/01/2016, anterior T-wave changes are now present. Consider anteri or ischemia. PREVIOUS TRACIN12/01/2016 01.55 DOCTOR: Slava Pollock Interpretating Date/Time 12/24/2016 16:44:09
== END 2016-12-23 16:49 | disposition left against medical advice (07) ==
LOC: NEPC 14:13
DX: R07.9 Chest pain, unspecified (principal); R51 Headache; R11.2 Nausea with vomiting, unspecified; R19.7 Diarrhea, unspecified
CPT/HCPCS: 71010; 80053; 81001; 82550; 83690; 83735; 84484; 85025; 85610; 85730; 93005; 96361; 96374; 99284; J2765; J7030